=== PATIENT | female | born 1940 | race Caucasian/White ===

== ENCOUNTER 2021-09-12 15:37 | Inpatient (IN) | payer MEDICARE, SELFPAY ==
[2021-09-12 16:30] LABS: #Basophils 0.1 thou/uL (0.0-0.2); #Eosinphils 0.2 thou/uL (0.0-0.7); #Lymphocytes 2.4 thou/uL (1.20-3.40); #Monocytes 1.3 thou/uL (0.11-0.59); %Basophils 0.7 % (0.0-1.0); %Lymphocytes 21.7 % (21.0-51.0); %Monocytes 11.8 % (0.0-10.0); %Neutrophils 63.9 % (42.0-75.0); Hemoglobin 13.1 g/dL (12.0-16.0); Mean Corpuscular HGB CONC 33.7 g/dL (32.0-36.0); Mean Corpuscular Hemoglobin 31.7 pg (27.0-31.0); Mean Corpuscular Volume 94.1 fL (78.0-98.0); Platelet Count 322 thou/uL (130-400); RBC Distribution Width 13.2 % (11.5-14.5); Red Blood Cell (RBC) Count 4.14 mill/uL (4.20-5.40)
[2021-09-12 16:51] LABS: ALT (SGPT) 21 U/L (8-55); AST (SGOT) 17 U/L (5-34); Albumin 3.9 g/dL (3.4-4.8); Alkaline Phosphatase 76 U/L (40-110); Anion Gap 14 mmol/L (10-20); BUN (Urea Nitrogen) 25 mg/dL (9.8-20.1); Bilirubin, Total 0.5 mg/dL (0.2-1.2); Calc. Creatinine Clearance 0 mL/min (70-130); Calcium 8.9 mg/dL (7.8-10.44); Carbon Dioxide 25 mmol/L (23-31); Chloride 105 mmol/L (98-107); Globulin 2.4 g/dL (2.4-3.5); Glucose 128 mg/dL (83-110); Magnesium 1.5 mg/dL (1.6-2.6); Protein, Total 6.3 g/dL (5.8-8.1); Sodium 140 mmol/L (136-145)
[2021-09-12] MEDS ORDERED: Labetalol HCl 100 MG/20 ML VIAL ONE (18:17)
[2021-09-12] MEDS ORDERED: Bisacodyl 5 MG TAB PO PRN (20:29)
[2021-09-12] MEDS ORDERED: Ondansetron PF 4 MG/2 ML Vial IVP PRN (20:29)
[2021-09-12] MEDS ORDERED: Loperamide HCl 2 MG CAP PO PRN (20:29)
[2021-09-12] MEDS ORDERED: HYDROcodone/Acetaminophen 5/325 mg Tablet PO PRN (20:29)
[2021-09-12] MEDS ORDERED: Albuterol Sulfate 2.5 mg/3 ml Neb NEB PRN (20:37)
[2021-09-12] MEDS ORDERED: Morphine 2 MG/ML VIAL SLOW IVP PRN (20:39)
[2021-09-12 21:21] LABS: Digoxin 0.88 ng/mL (0.8-2.0)
[2021-09-12 21:54] VITALS: BMI 36.8
[2021-09-12] MEDS ORDERED: Carvedilol 25 MG TAB PO SCH (22:45)
[2021-09-12] MEDS ORDERED: Losartan 25 MG TAB PO SCH (22:45)
[2021-09-12] MEDS: Amiodarone 200 MG TAB PO SCH (23:29)
[2021-09-12] MEDS: Apixaban 5 MG TAB PO SCH (23:31)
[2021-09-12] MEDS: Atorvastatin Calcium 10 MG TAB PO SCH (23:31)
[2021-09-12] MEDS: Famotidine 20 MG TAB PO SCH (23:31)
[2021-09-13] MEDS ORDERED: diphenhydrAMINE 25 MG CAP PO SCH (01:15)
[2021-09-13] MEDS: Acetaminophen 325 MG TAB PO PRN (01:31)
[2021-09-13 05:25] LABS: #Basophils 0.1 thou/uL (0.0-0.2); #Eosinphils 0.3 thou/uL (0.0-0.7); #Lymphocytes 2.9 thou/uL (1.20-3.40); #Monocytes 1.2 thou/uL (0.11-0.59); #Neutrophils 5.8 thou/uL (1.40-6.50); %Basophils 0.7 % (0.0-1.0); %Lymphocytes 28.3 % (21.0-51.0); %Monocytes 11.6 % (0.0-10.0); %Neutrophils 56.5 % (42.0-75.0); Hemoglobin 12.5 g/dL (12.0-16.0); Mean Corpuscular HGB CONC 33.4 g/dL (32.0-36.0); Mean Corpuscular Hemoglobin 32.7 pg (27.0-31.0); Mean Corpuscular Volume 97.6 fL (78.0-98.0); Mean Platelet Volume 7.6 fL (7.4-10.4); Platelet Count 285 thou/uL (130-400); RBC Distribution Width 12.9 % (11.5-14.5); Red Blood Cell (RBC) Count 3.82 mill/uL (4.20-5.40); White Blood Cell (WBC) Count 10.3 thou/uL (4.8-10.8)
[2021-09-13 05:34] LABS: ALT (SGPT) 18 U/L (8-55); AST (SGOT) 15 U/L (5-34); Albumin 3.5 g/dL (3.4-4.8); Alkaline Phosphatase 69 U/L (40-110); Anion Gap 14 mmol/L (10-20); BUN (Urea Nitrogen) 20 mg/dL (9.8-20.1); Bilirubin, Total 0.4 mg/dL (0.2-1.2); Calc. Creatinine Clearance 69 mL/min (70-130); Calcium 8.4 mg/dL (7.8-10.44); Carbon Dioxide 25 mmol/L (23-31); Chloride 106 mmol/L (98-107); Globulin 2.3 g/dL (2.4-3.5); Glucose 117 mg/dL (83-110); Magnesium 1.5 mg/dL (1.6-2.6); Potassium 3.8 mmol/L (3.5-5.1); Protein, Total 5.8 g/dL (5.8-8.1); Sodium 141 mmol/L (136-145)
[2021-09-13 05:39] LABS: Troponin I 0.022 ng/mL (< 0.028)
[2021-09-13] MEDS: Amiodarone 200 MG TAB PO SCH ×2 (08:24→21:01)
[2021-09-13] MEDS: Carvedilol 25 MG TAB PO SCH ×2 (08:24→16:33)
[2021-09-13] MEDS: Famotidine 20 MG TAB PO SCH ×2 (08:24→21:01)
[2021-09-13] MEDS: Apixaban 5 MG TAB PO SCH ×2 (08:24→21:01)
[2021-09-13] MEDS: Digoxin 0.125 MG TAB PO SCH (08:24)
[2021-09-13] MEDS: Oxybutynin 5 MG TAB PO SCH (08:25)
[2021-09-13 08:48] LABS: Bacteria/HPF None Seen HPF (None Seen); Bilirubin Negative (Negative); Blood, Urine Negative (Negative); Clarity Clear (Clear); Glucose, Urine (Dipstick) Normal (Negative); Ketone, Urine Negative (Negative); Leukocyte Negative Leu/uL (Negative); Nitrite Negative (Negative); Protein, Urine (Dipstick) Negative (Neg-Trace); RBC/HPF 0-3 HPF (0-3); Specific Gravity, Urine 1.012 (1.002-1.036); Squamous Epithelial 0-3 HPF (0-3); Urobilinogen Normal mg/dL (Less than 2); WBC/HPF 0-3 HPF (0-3)
[2021-09-13] MEDS ORDERED: Losartan 25 MG TAB PO SCH ×2 (09:00→15:30)
[2021-09-13 10:34] LABS: Troponin I 0.018 ng/mL (< 0.028)
[2021-09-13] MEDS ORDERED: Hydrochlorothiazide 25 MG TAB PO SCH (15:30)
[2021-09-13 16:22] LABS: Troponin I 0.025 ng/mL (< 0.028)
[2021-09-13] MEDS: Zolpidem Tartrate 5 MG TAB PO PRN (21:01)
[2021-09-13] MEDS: Atorvastatin Calcium 10 MG TAB PO SCH (21:01)
[2021-09-14] MEDS: hydrALAZINE 20 MG/ML VIAL SLOW IVP PRN ×2 (04:16→19:17)
[2021-09-14] MEDS ORDERED: Iopamidol-370 76% 500 ML 1 ML ONE (08:20)
[2021-09-14] MEDS ORDERED: Hydrochlorothiazide 25 MG TAB PO SCH (09:00)
[2021-09-14] MEDS: Carvedilol 25 MG TAB PO SCH ×2 (09:03→17:29)
[2021-09-14] MEDS: Amiodarone 200 MG TAB PO SCH ×2 (09:03→20:32)
[2021-09-14] MEDS: Amlodipine 5 MG TAB PO SCH (09:03)
[2021-09-14] MEDS: Digoxin 0.125 MG TAB PO SCH (09:03)
[2021-09-14] MEDS: Apixaban 5 MG TAB PO SCH ×2 (09:03→20:32)
[2021-09-14] MEDS: Famotidine 20 MG TAB PO SCH ×2 (09:04→20:32)
[2021-09-14] MEDS: Oxybutynin 5 MG TAB PO SCH (09:04)
[2021-09-14] MEDS: Hydrochlorothiazide 25 MG TAB PO SCH (09:04)
[2021-09-14] MEDS: Losartan 25 MG TAB PO SCH (09:04)
[2021-09-14] MEDS: Acetaminophen 325 MG TAB PO PRN ×2 (09:07→13:16)
[2021-09-14] MEDS: Zolpidem Tartrate 5 MG TAB PO PRN (20:32)
[2021-09-14] MEDS: Atorvastatin Calcium 10 MG TAB PO SCH (20:32)
[2021-09-15] MEDS: Zolpidem Tartrate 5 MG TAB PO PRN ×2 (01:10→22:53)
[2021-09-15 05:17] LABS: #Eosinphils 0.4 thou/uL (0.0-0.7); #Lymphocytes 2.4 thou/uL (1.20-3.40); #Monocytes 1.1 thou/uL (0.11-0.59); #Neutrophils 4.6 thou/uL (1.40-6.50); %Basophils 0.4 % (0.0-1.0); %Eosinophils 4.4 % (0.0-10.0); %Lymphocytes 28.4 % (21.0-51.0); %Monocytes 12.3 % (0.0-10.0); %Neutrophils 54.5 % (42.0-75.0); Hemoglobin 13.1 g/dL (12.0-16.0); Mean Platelet Volume 7.6 fL (7.4-10.4); Platelet Count 286 thou/uL (130-400); White Blood Cell (WBC) Count 8.5 thou/uL (4.8-10.8)
[2021-09-15 05:43] LABS: Anion Gap 14 mmol/L (10-20); BUN (Urea Nitrogen) 19 mg/dL (9.8-20.1); Calc. Creatinine Clearance 81 mL/min (70-130); Calcium 8.9 mg/dL (7.8-10.44); Carbon Dioxide 26 mmol/L (23-31); Chloride 101 mmol/L (98-107); Glucose 116 mg/dL (83-110); Potassium 3.5 mmol/L (3.5-5.1); Sodium 137 mmol/L (136-145)
[2021-09-15] MEDS: Hydrochlorothiazide 25 MG TAB PO SCH (07:54)
[2021-09-15] MEDS: Digoxin 0.125 MG TAB PO SCH (07:54)
[2021-09-15] MEDS: Oxybutynin 5 MG TAB PO SCH (07:55)
[2021-09-15] MEDS: Amiodarone 200 MG TAB PO SCH ×2 (07:55→20:49)
[2021-09-15] MEDS: Famotidine 20 MG TAB PO SCH ×2 (07:55→20:50)
[2021-09-15] MEDS: Apixaban 5 MG TAB PO SCH ×2 (07:55→20:50)
[2021-09-15] MEDS: Amlodipine 5 MG TAB PO SCH (07:55)
[2021-09-15] MEDS: Losartan 25 MG TAB PO SCH (07:55)
[2021-09-15] MEDS: Carvedilol 25 MG TAB PO SCH ×2 (07:55→16:31)
[2021-09-15] MEDS ORDERED: Calcium Carbonate 500 MG ChewTAB PO PRN (09:28)
[2021-09-15] MEDS ORDERED: Loratadine 10 MG TAB PO PRN (09:28)
[2021-09-15] MEDS ORDERED: Artificial Tear Sol 15 ML BOT EA EYE PRN (09:28)
[2021-09-15] MEDS ORDERED: Moisturizing Cream (Eucerin) 113 GM JAR TOP PRN (09:28)
[2021-09-15] MEDS ORDERED: GUAIFENESIN SF SOLN 200 MG/10 ML UDCUP PO PRN (09:28)
[2021-09-15] MEDS: Acetaminophen 325 MG TAB PO PRN ×2 (16:31→22:53)
[2021-09-15] MEDS: Atorvastatin Calcium 10 MG TAB PO SCH (20:49)
[2021-09-16] MEDS: Oxybutynin 5 MG TAB PO SCH (08:25)
[2021-09-16] MEDS: Amiodarone 200 MG TAB PO SCH ×2 (08:25→20:53)
[2021-09-16] MEDS: Amlodipine 5 MG TAB PO SCH (08:25)
[2021-09-16] MEDS: Digoxin 0.125 MG TAB PO SCH (08:26)
[2021-09-16] MEDS: Apixaban 5 MG TAB PO SCH ×2 (08:26→20:53)
[2021-09-16] MEDS: Hydrochlorothiazide 25 MG TAB PO SCH (08:26)
[2021-09-16] MEDS: Famotidine 20 MG TAB PO SCH ×2 (08:26→20:54)
[2021-09-16] MEDS: Carvedilol 25 MG TAB PO SCH ×2 (08:26→16:49)
[2021-09-16] MEDS: Losartan 25 MG TAB PO SCH (08:26)
[2021-09-16] MEDS: Acetaminophen 325 MG TAB PO PRN (15:20)
[2021-09-16] MEDS ORDERED: Polyethylene Glycol OPTH DROP 15 ML BOT EA EYE PRN (20:11)
[2021-09-16] MEDS: Atorvastatin Calcium 10 MG TAB PO SCH (20:54)
[2021-09-16] MEDS: Zolpidem Tartrate 5 MG TAB PO PRN (22:14)
[2021-09-17] MEDS: hydrALAZINE 20 MG/ML VIAL SLOW IVP PRN (00:08)
[2021-09-17] MEDS: Acetaminophen 325 MG TAB PO PRN ×3 (01:46→12:22)
[2021-09-17 05:32] LABS: #Basophils 0.1 thou/uL (0.0-0.2); #Eosinphils 0.3 thou/uL (0.0-0.7); #Lymphocytes 2.6 thou/uL (1.20-3.40); #Monocytes 1.4 thou/uL (0.11-0.59); #Neutrophils 6.3 thou/uL (1.40-6.50); %Basophils 0.6 % (0.0-1.0); %Eosinophils 2.9 % (0.0-10.0); %Lymphocytes 24.1 % (21.0-51.0); %Monocytes 13.4 % (0.0-10.0); Hemoglobin 13.2 g/dL (12.0-16.0); Mean Corpuscular HGB CONC 32.8 g/dL (32.0-36.0); Mean Corpuscular Hemoglobin 31.8 pg (27.0-31.0); Mean Corpuscular Volume 96.7 fL (78.0-98.0); Mean Platelet Volume 7.5 fL (7.4-10.4); Platelet Count 277 thou/uL (130-400); RBC Distribution Width 12.9 % (11.5-14.5); Red Blood Cell (RBC) Count 4.15 mill/uL (4.20-5.40); White Blood Cell (WBC) Count 10.8 thou/uL (4.8-10.8)
[2021-09-17 06:03] LABS: Anion Gap 14 mmol/L (10-20); BUN (Urea Nitrogen) 19 mg/dL (9.8-20.1); Calc. Creatinine Clearance 78 mL/min (70-130); Calcium 9.3 mg/dL (7.8-10.44); Carbon Dioxide 27 mmol/L (23-31); Chloride 101 mmol/L (98-107); Glucose 122 mg/dL (83-110); Magnesium 1.6 mg/dL (1.6-2.6); Potassium 3.3 mmol/L (3.5-5.1); Sodium 139 mmol/L (136-145)
[2021-09-17] MEDS: Digoxin 0.125 MG TAB PO SCH (08:49)
[2021-09-17] MEDS: Losartan 25 MG TAB PO SCH (08:49)
[2021-09-17] MEDS: Apixaban 5 MG TAB PO SCH (08:50)
[2021-09-17] MEDS: Oxybutynin 5 MG TAB PO SCH (08:50)
[2021-09-17] MEDS: Amlodipine 5 MG TAB PO SCH (08:50)
[2021-09-17] MEDS: Carvedilol 25 MG TAB PO SCH (08:50)
[2021-09-17] MEDS: Famotidine 20 MG TAB PO SCH (08:50)
[2021-09-17] MEDS: Amiodarone 200 MG TAB PO SCH (08:50)
[2021-09-17] MEDS: Hydrochlorothiazide 25 MG TAB PO SCH (08:51)
[2021-09-17] MEDS ORDERED: Potassium Chloride 10 MEQ in Premix Bag 1 BAG IVPB SCH (09:00)
[2021-09-17 16:26] VITALS: BP 177/72; TEMP 97.3
== END 2021-09-17 17:28 | DRG 305 ==
LOC: ERS 15:37 → 2SW 19:20 → OBSVTOIN 09-15 10:09
PROVIDERS: ADMIT Emergency Medicine; ATTEND Emergency Medicine
DX: I16.0 Hypertensive urgency (principal); I48.20 Chronic atrial fibrillation, unspecified; Z20.822 Contact with and (suspected) exposure to COVID-19; I10 Essential (primary) hypertension; E78.5 Hyperlipidemia, unspecified; M17.0 Bilateral primary osteoarthritis of knee; E66.9 Obesity, unspecified; E83.42 Hypomagnesemia; I70.1 Atherosclerosis of renal artery; Z79.01 Long term (current) use of anticoagulants; Z68.36 Body mass index [BMI] 36.0-36.9, adult; Z90.710 Acquired absence of both cervix and uterus; Z79.899 Other long term (current) drug therapy; Z88.1 Allergy status to other antibiotic agents; Z88.8 Allergy status to other drugs, medicaments and biological substances
CPT/HCPCS: 36415; 71046; 74174; 80048; 80053; 80162; 81001; 83735; 83835; 83880; 84443; 84484; 85025; 85379; 93005; 96374; J0360; J3480; Q9967; U0003; U0005

== ENCOUNTER 2021-10-11 10:20 | Inpatient (IN) | payer MEDICARE ==
[2021-10-11] MEDS ORDERED: Aspirin Chewable 81 MG TAB ONE (10:39)
[2021-10-11] MEDS ORDERED: Nitroglycerin 2% Ointment 1 INCH/1 GM Packet ONE ×2 (10:39→11:03)
[2021-10-11] MEDS ORDERED: Acetaminophen 500 MG TAB ONE ×2 (10:40→11:03)
[2021-10-11 11:04] LABS: #Basophils 0.1 thou/uL (0.0-0.2); #Lymphocytes 1.5 thou/uL (1.20-3.40); #Monocytes 1.8 thou/uL (0.11-0.59); #Neutrophils 10.9 thou/uL (1.40-6.50); %Basophils 0.5 % (0.0-1.0); %Eosinophils 0.3 % (0.0-10.0); %Lymphocytes 10.5 % (21.0-51.0); %Monocytes 12.7 % (0.0-10.0); %Neutrophils 76.1 % (42.0-75.0); Hemoglobin 11.7 g/dL (12.0-16.0); Mean Corpuscular HGB CONC 32.6 g/dL (32.0-36.0); Mean Corpuscular Hemoglobin 31.7 pg (27.0-31.0); Mean Corpuscular Volume 97.3 fL (78.0-98.0); Mean Platelet Volume 8.1 fL (7.4-10.4); Platelet Count 229 thou/uL (130-400); RBC Distribution Width 13.8 % (11.5-14.5); White Blood Cell (WBC) Count 14.4 thou/uL (4.8-10.8)
[2021-10-11] MEDS ORDERED: Azithromycin 500 MG VIAL ONE (11:23)
[2021-10-11] MEDS ORDERED: cefTRIAXone\\ROCEPHIN 2 GM VIAL ONE (11:23)
[2021-10-11 11:25] LABS: ALT (SGPT) 34 U/L (8-55); AST (SGOT) 16 U/L (5-34); Albumin 3.6 g/dL (3.4-4.8); Alkaline Phosphatase 66 U/L (40-110); Anion Gap 14 mmol/L (10-20); BUN (Urea Nitrogen) 12 mg/dL (9.8-20.1); Bilirubin, Total 1.4 mg/dL (0.2-1.2); CK (CPK) 116 U/L (29-168); Calc. Creatinine Clearance 0 mL/min (70-130); Calcium 8.4 mg/dL (7.8-10.44); Carbon Dioxide 26 mmol/L (23-31); Estimated GFR 87; Globulin 2.4 g/dL (2.4-3.5); Glucose 142 mg/dL (83-110); Lipase 7 U/L (8-78); Potassium 3.3 mmol/L (3.5-5.1); Sodium 137 mmol/L (136-145)
[2021-10-11] MEDS ORDERED: Albuterol Sulfate 2.5 mg/0.5 ml Neb ONE (11:31)
[2021-10-11] MEDS ORDERED: Albuterol Sulfate 2.5 mg/3 ml Neb ONE (11:31)
[2021-10-11 11:36] LABS: Chloride 100 mmol/L (98-107)
[2021-10-11] MEDS ORDERED: Potassium Chloride 20 MEQ TAB ONE (11:43)
[2021-10-11] MEDS ORDERED: Ondansetron PF 4 MG/2 ML Vial IVP PRN (12:24)
[2021-10-11] MEDS ORDERED: Ondansetron ODT 4 MG TAB PO PRN (12:24)
[2021-10-11] MEDS ORDERED: hydrALAZINE 20 MG/ML VIAL SLOW IVP PRN (12:24)
[2021-10-11] MEDS ORDERED: Potassium Chloride 20 MEQ TAB PO SCH (12:30)
[2021-10-11] MEDS ORDERED: Albuterol 200 PUFF (6.7GM INHALER) INH PRN (13:00)
[2021-10-11 14:27] LABS: Troponin I 0.031 ng/mL (< 0.028)
[2021-10-11] MEDS ORDERED: Furosemide 40 MG/4 ML VIAL ONE (14:51)
[2021-10-11] MEDS: Furosemide 40 MG/4 ML VIAL SLOW IVP SCH (15:17)
[2021-10-11 17:48] LABS: Troponin I 0.033 ng/mL (< 0.028)
[2021-10-11 17:49] LABS: SARS-CoV-2 NAA Rapid Test Not Detected (NotDetected)
[2021-10-11] MEDS: Famotidine 20 MG TAB PO SCH (21:02)
[2021-10-11] MEDS: Potassium Chloride 20 MEQ TAB PO SCH (21:02)
[2021-10-11] MEDS: Acetaminophen 500 MG TAB PO PRN (21:03)
[2021-10-11] MEDS: Apixaban 5 MG TAB PO SCH (21:03)
[2021-10-11] MEDS: Atorvastatin Calcium 10 MG TAB PO SCH (21:03)
[2021-10-11] MEDS: Magnesium Oxide 400 MG TAB PO SCH (21:04)
[2021-10-11] MEDS: Amiodarone 200 MG TAB PO SCH (21:04)
[2021-10-11 22:07] LABS: Bacteria/HPF 1+ HPF (None Seen); Bilirubin Negative (Negative); Blood, Urine Negative (Negative); Clarity Clear (Clear); Glucose, Urine (Dipstick) Normal (Negative); Ketone, Urine Negative (Negative); Leukocyte 25 Leu/uL (Negative); Nitrite Negative (Negative); Protein, Urine (Dipstick) 20 mg/dL (Neg-Trace); RBC/HPF 0-3 HPF (0-3); Specific Gravity, Urine 1.016 (1.002-1.036); Squamous Epithelial 0-3 HPF (0-3); Urobilinogen Normal mg/dL (Less than 2); WBC/HPF 0-3 HPF (0-3)
[2021-10-11] MEDS ORDERED: traMADol HCl 50 MG TAB PO SCH (23:00)
[2021-10-12 04:29] LABS: #Basophils 0.1 thou/uL (0.0-0.2); #Eosinphils 0.2 thou/uL (0.0-0.7); #Lymphocytes 2.4 thou/uL (1.20-3.40); #Monocytes 1.6 thou/uL (0.11-0.59); #Neutrophils 9.4 thou/uL (1.40-6.50); %Basophils 0.5 % (0.0-1.0); %Eosinophils 1.4 % (0.0-10.0); %Lymphocytes 17.6 % (21.0-51.0); %Monocytes 11.6 % (0.0-10.0); %Neutrophils 68.8 % (42.0-75.0); Hemoglobin 11.8 g/dL (12.0-16.0); Mean Corpuscular HGB CONC 32.7 g/dL (32.0-36.0); Mean Corpuscular Volume 97.8 fL (78.0-98.0); Platelet Count 239 thou/uL (130-400); RBC Distribution Width 14.1 % (11.5-14.5); Red Blood Cell (RBC) Count 3.71 mill/uL (4.20-5.40); White Blood Cell (WBC) Count 13.6 thou/uL (4.8-10.8)
[2021-10-12 04:48] LABS: ALT (SGPT) 33 U/L (8-55); AST (SGOT) 22 U/L (5-34); Albumin 3.6 g/dL (3.4-4.8); Alkaline Phosphatase 71 U/L (40-110); Anion Gap 15 mmol/L (10-20); BUN (Urea Nitrogen) 13 mg/dL (9.8-20.1); Bilirubin, Total 0.9 mg/dL (0.2-1.2); Calc. Creatinine Clearance 102 mL/min (70-130); Calcium 8.6 mg/dL (7.8-10.44); Carbon Dioxide 26 mmol/L (23-31); Chloride 103 mmol/L (98-107); Estimated GFR 83; Glucose 117 mg/dL (83-110); Magnesium 1.6 mg/dL (1.6-2.6); Protein, Total 6.6 g/dL (5.8-8.1); Sodium 140 mmol/L (136-145)
[2021-10-12] MEDS: ALPRAZolam 0.25 MG TAB PO PRN ×2 (05:17→11:26)
[2021-10-12] MEDS ORDERED: cloNIDine 0.2 MG TAB PO SCH (05:30)
[2021-10-12] MEDS: Amiodarone 200 MG TAB PO SCH ×2 (06:34→16:43)
[2021-10-12] MEDS ORDERED: Furosemide 40 MG TAB PO SCH (07:00)
[2021-10-12] MEDS: Furosemide 40 MG/4 ML VIAL SLOW IVP SCH (08:45)
[2021-10-12] MEDS: Furosemide 40 MG TAB PO SCH ×2 (08:51→13:32)
[2021-10-12] MEDS: Digoxin 0.125 MG TAB PO SCH (10:04)
[2021-10-12] MEDS: Oxybutynin 5 MG TAB PO SCH (10:05)
[2021-10-12] MEDS: Famotidine 20 MG TAB PO SCH ×2 (10:05→21:23)
[2021-10-12] MEDS: Potassium Chloride 20 MEQ TAB PO SCH ×2 (10:05→16:43)
[2021-10-12] MEDS: Magnesium Oxide 400 MG TAB PO SCH ×2 (10:06→21:24)
[2021-10-12] MEDS: Amlodipine 5 MG TAB PO SCH (10:06)
[2021-10-12] MEDS: Apixaban 5 MG TAB PO SCH ×2 (10:06→21:23)
[2021-10-12] MEDS ORDERED: Azithromycin 500 MG in Sodium Chloride 0.9% 250 ML 250 ML IVPB SCH (11:30)
[2021-10-12] MEDS ORDERED: cefTRIAXone\\ROCEPHIN 2 GM in Sodium Chloride 0.9% 100 ML IVPB SCH (11:30)
[2021-10-12] MEDS: cefTRIAXone\\ROCEPHIN 2 GM in Sodium Chloride 0.9% 100 ML IVPB SCH (15:16)
[2021-10-12] MEDS: Azithromycin 500 MG in Sodium Chloride 0.9% 250 ML 250 ML IVPB SCH (16:44)
[2021-10-12] MEDS: Atorvastatin Calcium 10 MG TAB PO SCH (21:23)
[2021-10-12] MEDS: Acetaminophen 500 MG TAB PO PRN (21:24)
[2021-10-12] MEDS: Melatonin 3 MG TAB PO PRN (21:25)
[2021-10-13 04:45] LABS: Hemoglobin 10.8 g/dL (12.0-16.0); Mean Corpuscular Hemoglobin 32.4 pg (27.0-31.0); Mean Corpuscular Volume 98.2 fL (78.0-98.0); Mean Platelet Volume 7.9 fL (7.4-10.4); Platelet Count 224 thou/uL (130-400); Red Blood Cell (RBC) Count 3.33 mill/uL (4.20-5.40); White Blood Cell (WBC) Count 8.9 thou/uL (4.8-10.8)
[2021-10-13 04:59] LABS: Anion Gap 14 mmol/L (10-20); BUN (Urea Nitrogen) 16 mg/dL (9.8-20.1); Calc. Creatinine Clearance 92 mL/min (70-130); Calcium 7.7 mg/dL (7.8-10.44); Carbon Dioxide 25 mmol/L (23-31); Chloride 104 mmol/L (98-107); Estimated GFR 74; Glucose 105 mg/dL (83-110); Sodium 139 mmol/L (136-145)
[2021-10-13 05:10] LABS: Band 3 % (5-11); Eosinophils 1 % (0-10); Lymphocytes 21 % (21-51); MDiff Complete? YES; Monocytes 10 % (0-10); Myelocyte 1 % (0-0); Neutrophil 63 % (42-75)
[2021-10-13] MEDS: Digoxin 0.125 MG TAB PO SCH (09:38)
[2021-10-13] MEDS: Oxybutynin 5 MG TAB PO SCH (09:38)
[2021-10-13] MEDS: Famotidine 20 MG TAB PO SCH ×2 (09:40→20:55)
[2021-10-13] MEDS: Furosemide 40 MG TAB PO SCH ×2 (09:40→16:24)
[2021-10-13] MEDS: Apixaban 5 MG TAB PO SCH ×2 (09:40→20:56)
[2021-10-13] MEDS: Magnesium Oxide 400 MG TAB PO SCH ×2 (09:41→20:55)
[2021-10-13] MEDS: Potassium Chloride 20 MEQ TAB PO SCH ×2 (09:41→16:24)
[2021-10-13] MEDS: Amlodipine 5 MG TAB PO SCH (09:42)
[2021-10-13] MEDS: Amiodarone 200 MG TAB PO SCH ×2 (09:43→16:24)
[2021-10-13] MEDS ORDERED: Losartan 25 MG TAB PO SCH (10:00)
[2021-10-13] MEDS ORDERED: Carvedilol 6.25 MG TAB PO SCH (10:00)
[2021-10-13] MEDS ORDERED: Albuterol Sulfate 2.5 mg/3 ml Neb NEB PRN (10:04)
[2021-10-13] MEDS: cefTRIAXone\\ROCEPHIN 2 GM in Sodium Chloride 0.9% 100 ML IVPB SCH (16:25)
[2021-10-13] MEDS: Azithromycin 500 MG in Sodium Chloride 0.9% 250 ML 250 ML IVPB SCH (17:34)
[2021-10-13] MEDS: Carvedilol 6.25 MG TAB PO SCH (20:56)
[2021-10-13] MEDS: Senokot S 8.6-50 MG TAB PO SCH (20:56)
[2021-10-13] MEDS: Atorvastatin Calcium 10 MG TAB PO SCH (20:56)
[2021-10-13] MEDS ORDERED: Carvedilol 25 MG TAB PO SCH (21:00)
[2021-10-13] MEDS: ALPRAZolam 0.25 MG TAB PO PRN (23:57)
[2021-10-14 05:03] LABS: #Basophils 0.1 thou/uL (0.0-0.2); #Eosinphils 0.4 thou/uL (0.0-0.7); #Lymphocytes 1.8 thou/uL (1.20-3.40); #Monocytes 1.5 thou/uL (0.11-0.59); #Neutrophils 6.6 thou/uL (1.40-6.50); %Basophils 0.6 % (0.0-1.0); %Eosinophils 3.9 % (0.0-10.0); %Lymphocytes 17.5 % (21.0-51.0); %Monocytes 14.2 % (0.0-10.0); %Neutrophils 63.7 % (42.0-75.0); Hemoglobin 11.4 g/dL (12.0-16.0); Mean Corpuscular HGB CONC 32.7 g/dL (32.0-36.0); Mean Corpuscular Hemoglobin 32.1 pg (27.0-31.0); Mean Corpuscular Volume 98.3 fL (78.0-98.0); Mean Platelet Volume 7.7 fL (7.4-10.4); Platelet Count 263 thou/uL (130-400); RBC Distribution Width 13.8 % (11.5-14.5); Red Blood Cell (RBC) Count 3.55 mill/uL (4.20-5.40); White Blood Cell (WBC) Count 10.4 thou/uL (4.8-10.8)
[2021-10-14 05:06] LABS: Anion Gap 15 mmol/L (10-20); BUN (Urea Nitrogen) 13 mg/dL (9.8-20.1); Calc. Creatinine Clearance 96 mL/min (70-130); Calcium 8.3 mg/dL (7.8-10.44); Carbon Dioxide 27 mmol/L (23-31); Chloride 99 mmol/L (98-107); Estimated GFR 78; Glucose 120 mg/dL (83-110); Potassium 4.1 mmol/L (3.5-5.1); Sodium 137 mmol/L (136-145)
[2021-10-14] MEDS: Oxybutynin 5 MG TAB PO SCH (08:38)
[2021-10-14] MEDS: Carvedilol 6.25 MG TAB PO SCH (08:38)
[2021-10-14] MEDS: Losartan 25 MG TAB PO SCH (08:39)
[2021-10-14] MEDS: Magnesium Oxide 400 MG TAB PO SCH ×2 (08:39→20:37)
[2021-10-14] MEDS: Senokot S 8.6-50 MG TAB PO SCH ×2 (08:39→20:37)
[2021-10-14] MEDS: Apixaban 5 MG TAB PO SCH ×2 (08:39→20:38)
[2021-10-14] MEDS: Amiodarone 200 MG TAB PO SCH ×2 (08:40→16:48)
[2021-10-14] MEDS: Famotidine 20 MG TAB PO SCH ×2 (08:40→20:37)
[2021-10-14] MEDS: Potassium Chloride 20 MEQ TAB PO SCH ×2 (08:40→16:47)
[2021-10-14] MEDS: Amlodipine 5 MG TAB PO SCH (08:40)
[2021-10-14] MEDS: Furosemide 40 MG TAB PO SCH ×2 (08:40→15:23)
[2021-10-14] MEDS: Digoxin 0.125 MG TAB PO SCH (08:41)
[2021-10-14] MEDS ORDERED: Amlodipine 5 MG TAB PO SCH (09:05)
[2021-10-14 10:46] LABS: Troponin I 0.012 ng/mL (< 0.028)
[2021-10-14] MEDS ORDERED: Losartan 25 MG TAB PO ONE (12:25)
[2021-10-14] MEDS: cefTRIAXone\\ROCEPHIN 2 GM in Sodium Chloride 0.9% 100 ML IVPB SCH (15:27)
[2021-10-14] MEDS: Azithromycin 500 MG in Sodium Chloride 0.9% 250 ML 250 ML IVPB SCH (16:46)
[2021-10-14] MEDS: Carvedilol 25 MG TAB PO SCH (20:37)
[2021-10-14] MEDS: Melatonin 3 MG TAB PO PRN (20:37)
[2021-10-14] MEDS: Atorvastatin Calcium 10 MG TAB PO SCH (20:38)
[2021-10-15 04:37] LABS: #Basophils 0.1 thou/uL (0.0-0.2); #Eosinphils 0.4 thou/uL (0.0-0.7); #Lymphocytes 2.3 thou/uL (1.20-3.40); #Monocytes 1.2 thou/uL (0.11-0.59); #Neutrophils 5.2 thou/uL (1.40-6.50); %Basophils 0.8 % (0.0-1.0); %Eosinophils 4.1 % (0.0-10.0); %Monocytes 12.8 % (0.0-10.0); %Neutrophils 57.3 % (42.0-75.0); Hemoglobin 12.4 g/dL (12.0-16.0); Mean Corpuscular Hemoglobin 31.7 pg (27.0-31.0); Mean Corpuscular Volume 99.1 fL (78.0-98.0); Mean Platelet Volume 7.6 fL (7.4-10.4); Platelet Count 337 thou/uL (130-400); RBC Distribution Width 13.9 % (11.5-14.5); Red Blood Cell (RBC) Count 3.93 mill/uL (4.20-5.40); White Blood Cell (WBC) Count 9.1 thou/uL (4.8-10.8)
[2021-10-15 04:54] LABS: Anion Gap 17 mmol/L (10-20); BUN (Urea Nitrogen) 13 mg/dL (9.8-20.1); Calc. Creatinine Clearance 82 mL/min (70-130); Calcium 8.8 mg/dL (7.8-10.44); Carbon Dioxide 26 mmol/L (23-31); Chloride 100 mmol/L (98-107); Estimated GFR 69; Glucose 119 mg/dL (83-110); Potassium 4.4 mmol/L (3.5-5.1); Sodium 139 mmol/L (136-145)
[2021-10-15] MEDS: Amlodipine 10 MG TAB PO SCH (10:12)
[2021-10-15] MEDS: Famotidine 20 MG TAB PO SCH ×2 (10:13→20:40)
[2021-10-15] MEDS: Digoxin 0.125 MG TAB PO SCH (10:13)
[2021-10-15] MEDS: Potassium Chloride 20 MEQ TAB PO SCH ×2 (10:14→17:07)
[2021-10-15] MEDS: Senokot S 8.6-50 MG TAB PO SCH ×2 (10:15→20:40)
[2021-10-15] MEDS: Oxybutynin 5 MG TAB PO SCH (10:15)
[2021-10-15] MEDS: Furosemide 40 MG TAB PO SCH ×2 (10:15→15:26)
[2021-10-15] MEDS: Magnesium Oxide 400 MG TAB PO SCH ×2 (10:15→20:40)
[2021-10-15] MEDS: Carvedilol 25 MG TAB PO SCH ×2 (10:15→20:39)
[2021-10-15] MEDS: Amiodarone 200 MG TAB PO SCH ×2 (10:16→17:07)
[2021-10-15] MEDS: Losartan 25 MG TAB PO SCH (10:17)
[2021-10-15] MEDS: Apixaban 5 MG TAB PO SCH ×2 (10:17→20:39)
[2021-10-15] MEDS: ALPRAZolam 0.25 MG TAB PO PRN ×2 (10:20→20:40)
[2021-10-15] MEDS: cefTRIAXone\\ROCEPHIN 2 GM in Sodium Chloride 0.9% 100 ML IVPB SCH (15:33)
[2021-10-15] MEDS: Azithromycin 500 MG in Sodium Chloride 0.9% 250 ML 250 ML IVPB SCH (17:07)
[2021-10-15] MEDS: Atorvastatin Calcium 10 MG TAB PO SCH (20:39)
[2021-10-15] MEDS: Melatonin 3 MG TAB PO PRN (20:40)
[2021-10-16] MEDS: Potassium Chloride 20 MEQ TAB PO SCH ×2 (09:04→16:41)
[2021-10-16] MEDS: Furosemide 40 MG TAB PO SCH ×2 (09:04→14:39)
[2021-10-16] MEDS: Digoxin 0.125 MG TAB PO SCH (09:04)
[2021-10-16] MEDS: Carvedilol 25 MG TAB PO SCH ×2 (09:05→20:37)
[2021-10-16] MEDS: Amiodarone 200 MG TAB PO SCH ×2 (09:05→16:41)
[2021-10-16] MEDS: Famotidine 20 MG TAB PO SCH ×2 (09:05→20:37)
[2021-10-16] MEDS: Losartan 25 MG TAB PO SCH (09:05)
[2021-10-16] MEDS: Apixaban 5 MG TAB PO SCH ×2 (09:06→20:37)
[2021-10-16] MEDS: Amlodipine 10 MG TAB PO SCH (09:06)
[2021-10-16] MEDS: Senokot S 8.6-50 MG TAB PO SCH ×2 (09:06→20:46)
[2021-10-16] MEDS: Oxybutynin 5 MG TAB PO SCH (09:06)
[2021-10-16] MEDS: Magnesium Oxide 400 MG TAB PO SCH ×2 (09:06→20:37)
[2021-10-16] MEDS: Acetaminophen 500 MG TAB PO PRN ×2 (11:17→20:35)
[2021-10-16] MEDS: cefTRIAXone\\ROCEPHIN 2 GM in Sodium Chloride 0.9% 100 ML IVPB SCH (14:39)
[2021-10-16] MEDS: Azithromycin 500 MG in Sodium Chloride 0.9% 250 ML 250 ML IVPB SCH (15:35)
[2021-10-16] MEDS: Benzonatate 100 MG CAP PO PRN (20:35)
[2021-10-16] MEDS: ALPRAZolam 0.25 MG TAB PO PRN (20:35)
[2021-10-16] MEDS: Melatonin 3 MG TAB PO PRN (20:37)
[2021-10-16] MEDS: Atorvastatin Calcium 10 MG TAB PO SCH (20:37)
[2021-10-17] MEDS: Acetaminophen 500 MG TAB PO PRN ×4 (04:05→23:39)
[2021-10-17] MEDS: Benzonatate 100 MG CAP PO PRN ×4 (04:05→23:39)
[2021-10-17] MEDS: Potassium Chloride 20 MEQ TAB PO SCH ×2 (09:06→17:10)
[2021-10-17] MEDS: Amiodarone 200 MG TAB PO SCH ×2 (09:06→17:10)
[2021-10-17] MEDS: Magnesium Oxide 400 MG TAB PO SCH ×2 (09:06→21:21)
[2021-10-17] MEDS: Famotidine 20 MG TAB PO SCH ×2 (09:06→21:21)
[2021-10-17] MEDS: Losartan 25 MG TAB PO SCH (09:07)
[2021-10-17] MEDS: Carvedilol 25 MG TAB PO SCH ×2 (09:07→21:21)
[2021-10-17] MEDS: Amlodipine 10 MG TAB PO SCH (09:07)
[2021-10-17] MEDS: Oxybutynin 5 MG TAB PO SCH (09:08)
[2021-10-17] MEDS: Furosemide 40 MG TAB PO SCH ×2 (09:08→13:22)
[2021-10-17] MEDS: Digoxin 0.125 MG TAB PO SCH (09:08)
[2021-10-17] MEDS: Senokot S 8.6-50 MG TAB PO SCH ×2 (09:08→21:22)
[2021-10-17] MEDS: Apixaban 5 MG TAB PO SCH ×2 (09:08→21:21)
[2021-10-17] MEDS: cefTRIAXone\\ROCEPHIN 2 GM in Sodium Chloride 0.9% 100 ML IVPB SCH (15:03)
[2021-10-17] MEDS: Azithromycin 500 MG in Sodium Chloride 0.9% 250 ML 250 ML IVPB SCH (17:36)
[2021-10-17] MEDS: Atorvastatin Calcium 10 MG TAB PO SCH (21:21)
[2021-10-18] MEDS: Benzonatate 100 MG CAP PO PRN ×2 (05:14→16:30)
[2021-10-18] MEDS: Acetaminophen 500 MG TAB PO PRN ×3 (05:14→22:19)
[2021-10-18] MEDS: Digoxin 0.125 MG TAB PO SCH (08:16)
[2021-10-18] MEDS: Oxybutynin 5 MG TAB PO SCH (08:17)
[2021-10-18] MEDS: Amlodipine 10 MG TAB PO SCH (08:17)
[2021-10-18] MEDS: Apixaban 5 MG TAB PO SCH ×2 (08:18→22:21)
[2021-10-18] MEDS: Losartan 25 MG TAB PO SCH (08:18)
[2021-10-18] MEDS: Famotidine 20 MG TAB PO SCH ×2 (08:18→22:24)
[2021-10-18] MEDS: Furosemide 40 MG TAB PO SCH ×2 (08:18→14:51)
[2021-10-18] MEDS: Potassium Chloride 20 MEQ TAB PO SCH ×2 (08:19→16:30)
[2021-10-18] MEDS: Carvedilol 25 MG TAB PO SCH ×2 (08:19→22:23)
[2021-10-18] MEDS: Amiodarone 200 MG TAB PO SCH ×2 (08:19→16:30)
[2021-10-18] MEDS: Magnesium Oxide 400 MG TAB PO SCH ×2 (08:19→22:23)
[2021-10-18] MEDS: Senokot S 8.6-50 MG TAB PO SCH ×3 (08:19→22:24)
[2021-10-18] MEDS: cefTRIAXone\\ROCEPHIN 2 GM in Sodium Chloride 0.9% 100 ML IVPB SCH (14:51)
[2021-10-18] MEDS ORDERED: Albuterol 200 PUFF (6.7GM INHALER) INH PRN (17:23)
[2021-10-18] MEDS: Azithromycin 500 MG in Sodium Chloride 0.9% 250 ML 250 ML IVPB SCH (17:43)
[2021-10-18] MEDS: Albuterol 200 PUFF (6.7GM INHALER) INH SCH (18:14)
[2021-10-18] MEDS: Atorvastatin Calcium 10 MG TAB PO SCH (22:21)
[2021-10-19] MEDS: ALPRAZolam 0.25 MG TAB PO PRN ×3 (00:44→22:04)
[2021-10-19] MEDS: Albuterol 200 PUFF (6.7GM INHALER) INH SCH ×5 (01:11→23:48)
[2021-10-19] MEDS: Digoxin 0.125 MG TAB PO SCH (08:51)
[2021-10-19] MEDS: Potassium Chloride 20 MEQ TAB PO SCH ×2 (08:52→17:25)
[2021-10-19] MEDS: Apixaban 5 MG TAB PO SCH ×2 (08:52→20:48)
[2021-10-19] MEDS: Magnesium Oxide 400 MG TAB PO SCH ×2 (08:52→20:47)
[2021-10-19] MEDS: Famotidine 20 MG TAB PO SCH ×2 (08:52→20:45)
[2021-10-19] MEDS: Carvedilol 25 MG TAB PO SCH ×2 (08:52→20:48)
[2021-10-19] MEDS: Furosemide 40 MG TAB PO SCH ×2 (08:52→14:35)
[2021-10-19] MEDS: Amlodipine 10 MG TAB PO SCH (08:52)
[2021-10-19] MEDS: Amiodarone 200 MG TAB PO SCH ×2 (08:53→17:25)
[2021-10-19] MEDS: Oxybutynin 5 MG TAB PO SCH (08:53)
[2021-10-19] MEDS: Losartan 25 MG TAB PO SCH (08:53)
[2021-10-19] MEDS ORDERED: Dexamethasone 6 MG in Sodium Chloride 0.9% 50 ML IVPB SCH (13:15)
[2021-10-19] MEDS: Acetaminophen 500 MG TAB PO PRN ×2 (14:52→20:48)
[2021-10-19] MEDS: Benzonatate 100 MG CAP PO PRN (14:52)
[2021-10-19] MEDS: cefTRIAXone\\ROCEPHIN 2 GM in Sodium Chloride 0.9% 100 ML IVPB SCH (16:03)
[2021-10-19] MEDS: Azithromycin 500 MG in Sodium Chloride 0.9% 250 ML 250 ML IVPB SCH (17:24)
[2021-10-19] MEDS: Senokot S 8.6-50 MG TAB PO SCH (20:47)
[2021-10-19] MEDS: Atorvastatin Calcium 10 MG TAB PO SCH (20:48)
[2021-10-19] MEDS: Melatonin 3 MG TAB PO PRN (20:49)
[2021-10-20] MEDS: Albuterol 200 PUFF (6.7GM INHALER) INH SCH ×3 (05:14→19:05)
[2021-10-20] MEDS ORDERED: Dexamethasone 6 MG in Sodium Chloride 0.9% 50 ML IVPB SCH (09:00)
[2021-10-20] MEDS: Digoxin 0.125 MG TAB PO SCH (09:04)
[2021-10-20] MEDS: Potassium Chloride 20 MEQ TAB PO SCH ×2 (09:04→16:37)
[2021-10-20] MEDS: Apixaban 5 MG TAB PO SCH ×2 (09:05→21:03)
[2021-10-20] MEDS: Famotidine 20 MG TAB PO SCH ×2 (09:05→21:03)
[2021-10-20] MEDS: Losartan 25 MG TAB PO SCH (09:05)
[2021-10-20] MEDS: Amiodarone 200 MG TAB PO SCH ×2 (09:06→16:37)
[2021-10-20] MEDS: Senokot S 8.6-50 MG TAB PO SCH ×2 (09:06→21:03)
[2021-10-20] MEDS: Oxybutynin 5 MG TAB PO SCH (09:06)
[2021-10-20] MEDS: Furosemide 40 MG TAB PO SCH ×2 (09:06→14:40)
[2021-10-20] MEDS: Magnesium Oxide 400 MG TAB PO SCH ×2 (09:06→21:03)
[2021-10-20] MEDS: Amlodipine 10 MG TAB PO SCH (09:06)
[2021-10-20] MEDS: Carvedilol 25 MG TAB PO SCH ×2 (09:06→21:04)
[2021-10-20] MEDS: Dexamethasone 4 mg/ml Vial SLOW IVP SCH (09:13)
[2021-10-20] MEDS: cefTRIAXone\\ROCEPHIN 2 GM in Sodium Chloride 0.9% 100 ML IVPB SCH (14:41)
[2021-10-20] MEDS: Azithromycin 500 MG in Sodium Chloride 0.9% 250 ML 250 ML IVPB SCH (16:34)
[2021-10-20] MEDS: Acetaminophen 500 MG TAB PO PRN ×2 (16:38→21:57)
[2021-10-20] MEDS: Cholecalciferol 1,000 UNITS (25 MCG) TAB PO SCH (21:03)
[2021-10-20] MEDS: Zinc Sulfate 220 MG CAP PO SCH (21:03)
[2021-10-20] MEDS: Atorvastatin Calcium 10 MG TAB PO SCH (21:04)
[2021-10-20] MEDS: Benzonatate 100 MG CAP PO PRN (21:04)
[2021-10-20] MEDS: Melatonin 3 MG TAB PO PRN (21:04)
[2021-10-20] MEDS: ALPRAZolam 0.25 MG TAB PO PRN (21:57)
[2021-10-21] MEDS: Albuterol 200 PUFF (6.7GM INHALER) INH SCH ×5 (00:26→22:00)
[2021-10-21] MEDS: Acetaminophen 500 MG TAB PO PRN (04:38)
[2021-10-21] MEDS: ALPRAZolam 0.25 MG TAB PO PRN (04:39)
[2021-10-21 06:35] LABS: #Lymphocytes 1.7 thou/uL (1.20-3.40); #Monocytes 0.9 thou/uL (0.11-0.59); #Neutrophils 9.2 thou/uL (1.40-6.50); %Eosinophils 0.1 % (0.0-10.0); %Lymphocytes 14.1 % (21.0-51.0); %Monocytes 7.3 % (0.0-10.0); %Neutrophils 78.5 % (42.0-75.0); Mean Corpuscular HGB CONC 31.6 g/dL (32.0-36.0); Mean Corpuscular Hemoglobin 31.3 pg (27.0-31.0); Mean Corpuscular Volume 99.1 fL (78.0-98.0); Mean Platelet Volume 7.4 fL (7.4-10.4); Platelet Count 322 thou/uL (130-400); RBC Distribution Width 13.5 % (11.5-14.5); Red Blood Cell (RBC) Count 3.82 mill/uL (4.20-5.40); White Blood Cell (WBC) Count 11.8 thou/uL (4.8-10.8)
[2021-10-21 06:56] LABS: Anion Gap 16 mmol/L (10-20); BUN (Urea Nitrogen) 24 mg/dL (9.8-20.1); Calc. Creatinine Clearance 70 mL/min (70-130); Calcium 8.6 mg/dL (7.8-10.44); Carbon Dioxide 28 mmol/L (23-31); Chloride 99 mmol/L (98-107); Estimated GFR 63; Glucose 141 mg/dL (83-110); Magnesium 2.3 mg/dL (1.6-2.6); Phosphorus 3.4 mg/dL (2.3-4.7); Potassium 4.7 mmol/L (3.5-5.1); Sodium 138 mmol/L (136-145)
[2021-10-21] MEDS: Famotidine 20 MG TAB PO SCH ×2 (08:30→21:58)
[2021-10-21] MEDS: Carvedilol 25 MG TAB PO SCH ×2 (08:31→21:58)
[2021-10-21] MEDS: Multivit, Therapeutic 1 TAB PO SCH (08:31)
[2021-10-21] MEDS: Losartan 25 MG TAB PO SCH (08:31)
[2021-10-21] MEDS: Digoxin 0.125 MG TAB PO SCH (08:31)
[2021-10-21] MEDS: Magnesium Oxide 400 MG TAB PO SCH ×2 (08:32→21:59)
[2021-10-21] MEDS: Furosemide 40 MG TAB PO SCH (08:32)
[2021-10-21] MEDS: Ascorbic Acid 500 mg Chewable Tablet PO SCH (08:32)
[2021-10-21] MEDS: Apixaban 5 MG TAB PO SCH ×2 (08:32→21:58)
[2021-10-21] MEDS: Amlodipine 10 MG TAB PO SCH (08:32)
[2021-10-21] MEDS: Senokot S 8.6-50 MG TAB PO SCH ×2 (08:32→21:59)
[2021-10-21] MEDS: Oxybutynin 5 MG TAB PO SCH (08:32)
[2021-10-21] MEDS: Amiodarone 200 MG TAB PO SCH ×2 (08:32→16:09)
[2021-10-21] MEDS: Dexamethasone 4 mg/ml Vial SLOW IVP SCH (08:40)
[2021-10-21] MEDS: Azithromycin 500 MG in Sodium Chloride 0.9% 250 ML 250 ML IVPB SCH (16:12)
[2021-10-21] MEDS: cefTRIAXone\\ROCEPHIN 2 GM in Sodium Chloride 0.9% 100 ML IVPB SCH (16:12)
[2021-10-21] MEDS: Atorvastatin Calcium 10 MG TAB PO SCH (21:58)
[2021-10-21] MEDS: Cholecalciferol 1,000 UNITS (25 MCG) TAB PO SCH (21:58)
[2021-10-21] MEDS: Zinc Sulfate 220 MG CAP PO SCH (21:59)
[2021-10-22] MEDS: Acetaminophen 500 MG TAB PO PRN (00:31)
[2021-10-22] MEDS: Melatonin 3 MG TAB PO PRN ×2 (00:32→20:36)
[2021-10-22] MEDS: Albuterol 200 PUFF (6.7GM INHALER) INH SCH ×2 (05:47→19:07)
[2021-10-22] MEDS: Ascorbic Acid 500 mg Chewable Tablet PO SCH (08:48)
[2021-10-22] MEDS: Magnesium Oxide 400 MG TAB PO SCH ×2 (08:48→20:36)
[2021-10-22] MEDS: Digoxin 0.125 MG TAB PO SCH (08:48)
[2021-10-22] MEDS: Famotidine 20 MG TAB PO SCH ×2 (08:48→20:37)
[2021-10-22] MEDS: Multivit, Therapeutic 1 TAB PO SCH (08:48)
[2021-10-22] MEDS: Amlodipine 10 MG TAB PO SCH (08:48)
[2021-10-22] MEDS: Losartan 25 MG TAB PO SCH (08:48)
[2021-10-22] MEDS: Furosemide 40 MG TAB PO SCH (08:49)
[2021-10-22] MEDS: Carvedilol 25 MG TAB PO SCH ×2 (08:49→20:38)
[2021-10-22] MEDS: Amiodarone 200 MG TAB PO SCH ×2 (08:49→18:24)
[2021-10-22] MEDS: Apixaban 5 MG TAB PO SCH ×2 (08:49→20:36)
[2021-10-22] MEDS: Oxybutynin 5 MG TAB PO SCH (08:50)
[2021-10-22] MEDS: Senokot S 8.6-50 MG TAB PO SCH ×2 (08:50→20:38)
[2021-10-22 09:06] VITALS: BMI 36.8
[2021-10-22] MEDS: Cholecalciferol 1,000 UNITS (25 MCG) TAB PO SCH (20:36)
[2021-10-22] MEDS: Zinc Sulfate 220 MG CAP PO SCH (20:37)
[2021-10-22] MEDS: Atorvastatin Calcium 10 MG TAB PO SCH (20:37)
[2021-10-22] MEDS: Benzonatate 100 MG CAP PO PRN (21:21)
[2021-10-23] MEDS ORDERED: ALPRAZolam 0.25 MG TAB PO SCH (00:15)
[2021-10-23] MEDS: Acetaminophen 500 MG TAB PO PRN ×3 (00:23→21:09)
[2021-10-23] MEDS: Albuterol 200 PUFF (6.7GM INHALER) INH SCH ×4 (00:30→19:18)
[2021-10-23] MEDS ORDERED: traMADol HCl 50 MG TAB PO SCH (05:15)
[2021-10-23] MEDS: Carvedilol 25 MG TAB PO SCH ×2 (09:09→21:12)
[2021-10-23] MEDS: Digoxin 0.125 MG TAB PO SCH (09:09)
[2021-10-23] MEDS: Amlodipine 10 MG TAB PO SCH (09:09)
[2021-10-23] MEDS: Multivit, Therapeutic 1 TAB PO SCH (09:09)
[2021-10-23] MEDS: Ascorbic Acid 500 mg Chewable Tablet PO SCH (09:09)
[2021-10-23] MEDS: Senokot S 8.6-50 MG TAB PO SCH ×2 (09:09→21:12)
[2021-10-23] MEDS: Amiodarone 200 MG TAB PO SCH ×2 (09:09→17:47)
[2021-10-23] MEDS: Apixaban 5 MG TAB PO SCH ×2 (09:09→21:09)
[2021-10-23] MEDS: Magnesium Oxide 400 MG TAB PO SCH ×2 (09:09→21:09)
[2021-10-23] MEDS: Oxybutynin 5 MG TAB PO SCH (09:10)
[2021-10-23] MEDS: Furosemide 40 MG TAB PO SCH (09:10)
[2021-10-23] MEDS: Famotidine 20 MG TAB PO SCH ×2 (09:10→21:09)
[2021-10-23] MEDS: Losartan 25 MG TAB PO SCH (12:41)
[2021-10-23] MEDS: Melatonin 3 MG TAB PO PRN (21:09)
[2021-10-23] MEDS: Benzonatate 100 MG CAP PO PRN (21:09)
[2021-10-23] MEDS: Zinc Sulfate 220 MG CAP PO SCH (21:09)
[2021-10-23] MEDS: Cholecalciferol 1,000 UNITS (25 MCG) TAB PO SCH (21:09)
[2021-10-23] MEDS: Atorvastatin Calcium 10 MG TAB PO SCH (21:09)
[2021-10-24] MEDS: Albuterol 200 PUFF (6.7GM INHALER) INH SCH ×4 (00:13→11:57)
[2021-10-24] MEDS: Acetaminophen 500 MG TAB PO PRN ×2 (03:44→08:58)
[2021-10-24 08:07] VITALS: BP 135/63; TEMP 97.5
[2021-10-24] MEDS: Digoxin 0.125 MG TAB PO SCH (08:55)
[2021-10-24] MEDS: Multivit, Therapeutic 1 TAB PO SCH (08:55)
[2021-10-24] MEDS: Senokot S 8.6-50 MG TAB PO SCH (08:55)
[2021-10-24] MEDS: Famotidine 20 MG TAB PO SCH (08:55)
[2021-10-24] MEDS: Losartan 25 MG TAB PO SCH (08:56)
[2021-10-24] MEDS: Amiodarone 200 MG TAB PO SCH (08:56)
[2021-10-24] MEDS: Benzonatate 100 MG CAP PO PRN (08:56)
[2021-10-24] MEDS: Ascorbic Acid 500 mg Chewable Tablet PO SCH (08:56)
[2021-10-24] MEDS: Carvedilol 25 MG TAB PO SCH (08:56)
[2021-10-24] MEDS: Apixaban 5 MG TAB PO SCH (08:57)
[2021-10-24] MEDS: Oxybutynin 5 MG TAB PO SCH (08:57)
[2021-10-24] MEDS: Amlodipine 10 MG TAB PO SCH (08:57)
[2021-10-24] MEDS: Furosemide 40 MG TAB PO SCH (08:58)
[2021-10-24] MEDS: Magnesium Oxide 400 MG TAB PO SCH (08:58)
[2021-10-24] MEDS ORDERED: Hydrocortisone 2.5%/Pramoxine 1% CRM 30 GM TUBE PR SCH ×2 (09:30→15:00)
[2021-10-24] MEDS ORDERED: Nystatin Ointment 15 GM TUBE TOP SCH (09:30)
[2021-10-24] MEDS ORDERED: Nystatin Powder 15 GM BOT TOP SCH (21:00)
== END 2021-10-24 13:28 | DRG 871 ==
LOC: ERS 10:20 → ERHOLD 12:02 → 2NO 17:28 → T4-B 10-17 16:16
PROVIDERS: ADMIT Internal Medicine; ATTEND Internal Medicine
DX: A41.50 Gram-negative sepsis, unspecified (principal); J96.01 Acute respiratory failure with hypoxia; I50.33 Acute on chronic diastolic (congestive) heart failure; J15.6 Pneumonia due to other Gram-negative bacteria; U07.1 COVID-19; I48.20 Chronic atrial fibrillation, unspecified; A41.89 Other specified sepsis; Z20.822 Contact with and (suspected) exposure to COVID-19; I73.9 Peripheral vascular disease, unspecified; I25.10 Atherosclerotic heart disease of native coronary artery without angina pectoris; E78.5 Hyperlipidemia, unspecified; E66.9 Obesity, unspecified; F41.1 Generalized anxiety disorder; E87.6 Hypokalemia; M19.90 Unspecified osteoarthritis, unspecified site; I70.1 Atherosclerosis of renal artery; R32 Unspecified urinary incontinence; F32.A Depression, unspecified; I11.0 Hypertensive heart disease with heart failure; Z86.73 Personal history of transient ischemic attack (TIA), and cerebral infarction without residual deficits; Z90.710 Acquired absence of both cervix and uterus; Z88.1 Allergy status to other antibiotic agents; Z88.8 Allergy status to other drugs, medicaments and biological substances; Z79.02 Long term (current) use of antithrombotics/antiplatelets; Z79.01 Long term (current) use of anticoagulants; Z79.899 Other long term (current) drug therapy; Z79.51 Long term (current) use of inhaled steroids; Z68.37 Body mass index [BMI] 37.0-37.9, adult
CPT/HCPCS: 36415; 71045; 71046; 80048; 80053; 81003; 81015; 82550; 83605; 83690; 83735; 83880; 84100; 84145; 84484; 85025; 85379; 87040; 93005; 93306; 93798; 94640; 94644; 94668; 96365; 96366; 96367; 97139; J0456; J0696; J1100; J1940; J3490; J7050; J7611; J7620; U0003; U0005

== ENCOUNTER 2023-03-24 13:34 | Inpatient (IN) | payer MEDICARE ==
[2023-03-24] MEDS ORDERED: Furosemide 40 MG/4 ML VIAL ONE (14:06)
[2023-03-24 14:22] LABS: #Basophils 0.1 thou/uL (0.0-0.2); #Eosinphils 0.3 thou/uL (0.0-0.7); #Monocytes 1.2 thou/uL (0.11-0.59); #Neutrophils 5.1 thou/uL (1.40-6.50); %Basophils 0.6 % (0.0-1.0); %Eosinophils 3.1 % (0.0-10.0); %Lymphocytes 18.8 % (21.0-51.0); %Monocytes 14.3 % (0.0-10.0); Hematocrit 37.8 % (36.0-47.0); Hemoglobin 12.3 g/dL (12.0-16.0); Mean Corpuscular HGB CONC 32.5 g/dL (32.0-36.0); Mean Corpuscular Hemoglobin 32.4 pg (27.0-31.0); Mean Corpuscular Volume 99.5 fl (78.0-98.0); Mean Platelet Volume 10.1 fL (7.4-10.4); Platelet Count 228 10x3/uL (130-400); RBC Distribution Width 14.1 % (11.5-14.5); White Blood Cell (WBC) Count 8.1 10x3/uL (4.8-10.8)
[2023-03-24 14:45] LABS: ALT (SGPT) 47 U/L (8-55); AST (SGOT) 37 U/L (5-34); Albumin 3.8 g/dL (3.4-4.8); Alkaline Phosphatase 90 U/L (40-110); Anion Gap 14 mmol/L (10-20); BUN (Urea Nitrogen) 18 mg/dL (9.8-20.1); Bilirubin, Total 0.6 mg/dL (0.2-1.2); Calc. Creatinine Clearance 0 mL/min (70-130); Calcium 8.7 mg/dL (7.8-10.44); Carbon Dioxide 24 mmol/L (23-31); Chloride 105 mmol/L (98-107); Estimated GFR 73; Globulin 1.9 g/dL (2.4-3.5); Glucose 105 mg/dL (83-110); Potassium 4.2 mmol/L (3.5-5.1); Protein, Total 5.7 g/dL (5.8-8.1); Sodium 139 mmol/L (136-145)
[2023-03-24] MEDS ORDERED: Aspirin Chewable 81 MG TAB ONE (15:16)
[2023-03-24] MEDS ORDERED: Nitroglycerin 0.4 MG TAB 1 EACH ONE (15:16)
[2023-03-24] MEDS ORDERED: Acetaminophen 325 MG TAB PO PRN (15:55)
[2023-03-24] MEDS ORDERED: Nitroglycerin 0.4 MG TAB (25 Tab Bottle) SL PRN (15:57)
[2023-03-24 16:24] LABS: Digoxin Less than 0.15 ng/mL (0.8-2.0)
[2023-03-24] MEDS ORDERED: Amiodarone 200 MG TAB ONE (16:26)
[2023-03-24] MEDS ORDERED: hydrALAZINE 20 MG/ML VIAL SLOW IVP PRN (16:30)
[2023-03-24 16:37] VITALS: BMI 31.6
[2023-03-24] MEDS ORDERED: Amiodarone 200 MG TAB PO SCH (17:00)
[2023-03-24] MEDS ORDERED: Carvedilol 25 MG TAB ONE (20:43)
[2023-03-24] MEDS ORDERED: Atorvastatin Calcium 10 MG TAB ONE (20:43)
[2023-03-24] MEDS: HYDROcodone/Acetaminophen 5/325 mg Tablet PO PRN (20:49)
[2023-03-24] MEDS ORDERED: HYDROcodone/Acetaminophen 5/325 mg Tablet ONE (20:51)
[2023-03-24] MEDS: Atorvastatin Calcium 10 MG TAB PO SCH (21:08)
[2023-03-24] MEDS: Magnesium Oxide 400 MG TAB PO SCH (21:08)
[2023-03-24] MEDS: Carvedilol 25 MG TAB PO SCH (21:08)
[2023-03-24] MEDS: Apixaban 5 MG TAB PO SCH (21:08)
[2023-03-25 01:23] LABS: Bacteria/HPF None Seen HPF (None Seen); Bilirubin Negative (Negative); Blood, Urine Negative (Negative); CAUTI Indications for Culture Dysuria,urgency,freq; Clarity Clear (Clear); Glucose, Urine (Dipstick) Normal (Negative); Ketone, Urine Negative (Negative); Leukocyte Negative Leu/uL (Negative); Nitrite Negative (Negative); Protein, Urine (Dipstick) Negative (Neg-Trace); RBC/HPF 0-3 HPF (0-3); Specific Gravity, Urine 1.002 (1.002-1.036); Squamous Epithelial None Seen HPF (0-3); Urobilinogen Normal mg/dL (Less than 2); WBC/HPF 0-3 HPF (0-3); pH, Urine 7.5 (5.0-9.0)
[2023-03-25 01:24] LABS: Urine Culture Reflex No No
[2023-03-25] MEDS: Melatonin 3 MG TAB PO SCH ×2 (02:56→21:24)
[2023-03-25] MEDS: HYDROcodone/Acetaminophen 5/325 mg Tablet PO PRN (03:21)
[2023-03-25] MEDS ORDERED: HYDROcodone/Acetaminophen 5/325 mg Tablet ONE (03:24)
[2023-03-25] MEDS ORDERED: hydrALAZINE 20 MG/ML VIAL ONE ×2 (04:40→09:59)
[2023-03-25 06:06] LABS: #Basophils 0.1 thou/uL (0.0-0.2); #Eosinphils 0.3 thou/uL (0.0-0.7); #Monocytes 1.3 thou/uL (0.11-0.59); #Neutrophils 5.3 thou/uL (1.40-6.50); %Basophils 0.7 % (0.0-1.0); %Eosinophils 3.2 % (0.0-10.0); %Lymphocytes 22.3 % (21.0-51.0); %Monocytes 14.7 % (0.0-10.0); %Neutrophils 58.8 % (42.0-75.0); Hematocrit 38.2 % (36.0-47.0); Hemoglobin 12.6 g/dL (12.0-16.0); Mean Corpuscular Hemoglobin 31.7 pg (27.0-31.0); Platelet Count 220 10x3/uL (130-400); RBC Distribution Width 13.7 % (11.5-14.5); Red Blood Cell (RBC) Count 3.97 mill/uL (4.20-5.40)
[2023-03-25 06:09] LABS: Mean Corpuscular Volume 96.2 fl (78.0-98.0)
[2023-03-25] MEDS ORDERED: Furosemide 40 MG/4 ML VIAL ONE (06:10)
[2023-03-25] MEDS: Furosemide 40 MG/4 ML VIAL SLOW IVP SCH ×2 (06:22→17:15)
[2023-03-25 06:29] LABS: Anion Gap 13 mmol/L (10-20); BUN (Urea Nitrogen) 14 mg/dL (9.8-20.1); Calc. Creatinine Clearance 80 mL/min (70-130); Calcium 8.6 mg/dL (7.8-10.44); Carbon Dioxide 28 mmol/L (23-31); Chloride 101 mmol/L (98-107); Estimated GFR 86; Glucose 88 mg/dL (83-110); Magnesium 1.4 mg/dL (1.6-2.6); Potassium 3.2 mmol/L (3.5-5.1); Sodium 139 mmol/L (136-145)
[2023-03-25] MEDS ORDERED: Digoxin 0.125 MG TAB PO SCH (09:00)
[2023-03-25] MEDS ORDERED: Carvedilol 25 MG TAB ONE (09:59)
[2023-03-25] MEDS ORDERED: Amlodipine 5 MG TAB ONE (09:59)
[2023-03-25] MEDS ORDERED: Aspirin Chewable 81 MG TAB ONE (09:59)
[2023-03-25] MEDS: Losartan 25 MG TAB PO SCH (10:06)
[2023-03-25] MEDS: Multivit, Therapeutic 1 TAB PO SCH (10:06)
[2023-03-25] MEDS: Carvedilol 25 MG TAB PO SCH ×2 (10:06→21:24)
[2023-03-25] MEDS: Amlodipine 10 MG TAB PO SCH (10:06)
[2023-03-25] MEDS: Aspirin Chewable 81 MG TAB PO SCH (10:06)
[2023-03-25] MEDS: Apixaban 5 MG TAB PO SCH ×2 (10:06→21:24)
[2023-03-25] MEDS ORDERED: Losartan 25 MG TAB ONE (10:08)
[2023-03-25] MEDS ORDERED: Magnesium 2 GM/50 ML(in water) 2 GM in Premix 1 BAG IVPB SCH (11:00)
[2023-03-25] MEDS ORDERED: Morphine 4 MG/ML VIAL ONE (11:46)
[2023-03-25] MEDS: Potassium Chloride 20 MEQ TAB PO SCH ×2 (11:56→19:29)
[2023-03-25] MEDS ORDERED: Multivit, Therapeutic 1 TAB ONE (11:59)
[2023-03-25] MEDS ORDERED: Potassium Chloride 20 MEQ TAB ONE (11:59)
[2023-03-25] MEDS ORDERED: Magnesium 2 GM/50 ML BAG (IN WATER) ONE (11:59)
[2023-03-25] MEDS ORDERED: Morphine 2 MG/ML VIAL SLOW IVP SCH (12:00)
[2023-03-25] MEDS ORDERED: hydrOXYzine 25 MG TAB PO SCH (12:00)
[2023-03-25] MEDS: Ascorbic Acid 500 mg Chewable Tablet PO SCH (12:25)
[2023-03-25] MEDS: Oxybutynin 5 MG TAB PO SCH (12:25)
[2023-03-25] MEDS: Magnesium Oxide 400 MG TAB PO SCH (17:55)
[2023-03-25] MEDS: Atorvastatin Calcium 10 MG TAB PO SCH (21:24)
[2023-03-26] MEDS: Aspirin Chewable 81 MG TAB PO SCH (09:25)
[2023-03-26] MEDS: Oxybutynin 5 MG TAB PO SCH (09:25)
[2023-03-26] MEDS: Ascorbic Acid 500 mg Chewable Tablet PO SCH (09:26)
[2023-03-26] MEDS: Losartan 25 MG TAB PO SCH (09:26)
[2023-03-26] MEDS: Multivit, Therapeutic 1 TAB PO SCH (09:26)
[2023-03-26] MEDS: Carvedilol 25 MG TAB PO SCH ×2 (09:26→21:10)
[2023-03-26] MEDS: Amlodipine 10 MG TAB PO SCH (09:27)
[2023-03-26] MEDS: Torsemide 20 MG TAB PO SCH (09:27)
[2023-03-26] MEDS: Apixaban 5 MG TAB PO SCH ×2 (09:27→21:08)
[2023-03-26] MEDS ORDERED: Furosemide 40 MG/4 ML VIAL SLOW IVP SCH (14:15)
[2023-03-26] MEDS: Melatonin 3 MG TAB PO SCH (21:09)
[2023-03-26] MEDS: Atorvastatin Calcium 10 MG TAB PO SCH (21:10)
[2023-03-27] MEDS: HYDROcodone/Acetaminophen 5/325 mg Tablet PO PRN ×3 (01:41→22:47)
[2023-03-27 04:39] LABS: Anion Gap 15 mmol/L (10-20); BUN (Urea Nitrogen) 15 mg/dL (9.8-20.1); Calc. Creatinine Clearance 66 mL/min (70-130); Calcium 8.7 mg/dL (7.8-10.44); Carbon Dioxide 28 mmol/L (23-31); Chloride 94 mmol/L (98-107); Estimated GFR 70; Glucose 107 mg/dL (83-110); Magnesium 1.5 mg/dL (1.6-2.6); Potassium 2.9 mmol/L (3.5-5.1); Sodium 134 mmol/L (136-145)
[2023-03-27] MEDS: Furosemide 40 MG/4 ML VIAL SLOW IVP SCH ×2 (05:52→15:50)
[2023-03-27] MEDS: Multivit, Therapeutic 1 TAB PO SCH (08:56)
[2023-03-27] MEDS: Apixaban 5 MG TAB PO SCH ×2 (08:56→21:01)
[2023-03-27] MEDS: Amlodipine 10 MG TAB PO SCH (08:56)
[2023-03-27] MEDS: Ascorbic Acid 500 mg Chewable Tablet PO SCH (08:56)
[2023-03-27] MEDS: Torsemide 20 MG TAB PO SCH (08:56)
[2023-03-27] MEDS: Oxybutynin 5 MG TAB PO SCH (08:56)
[2023-03-27] MEDS: Aspirin Chewable 81 MG TAB PO SCH (08:56)
[2023-03-27] MEDS: Losartan 25 MG TAB PO SCH (08:56)
[2023-03-27] MEDS: Carvedilol 25 MG TAB PO SCH ×2 (08:56→21:01)
[2023-03-27] MEDS ORDERED: Magnesium 2 GM/50 ML(in water) 2 GM in Premix 1 BAG IVPB SCH (10:00)
[2023-03-27] MEDS ORDERED: Potassium Chloride 20 MEQ TAB PO SCH (10:00)
[2023-03-27] MEDS: Potassium Chloride 20 MEQ TAB PO SCH (15:50)
[2023-03-27] MEDS: Atorvastatin Calcium 10 MG TAB PO SCH (21:01)
[2023-03-27] MEDS: Melatonin 3 MG TAB PO SCH (21:01)
[2023-03-28 04:52] LABS: Anion Gap 16 mmol/L (10-20); BUN (Urea Nitrogen) 27 mg/dL (9.8-20.1); Calc. Creatinine Clearance 61 mL/min (70-130); Calcium 8.7 mg/dL (7.8-10.44); Carbon Dioxide 27 mmol/L (23-31); Chloride 96 mmol/L (98-107); Estimated GFR 68; Glucose 107 mg/dL (83-110); Magnesium 1.9 mg/dL (1.6-2.6); Sodium 136 mmol/L (136-145)
[2023-03-28] MEDS: Furosemide 40 MG/4 ML VIAL SLOW IVP SCH (05:32)
[2023-03-28 07:55] VITALS: TEMP 98
[2023-03-28] MEDS: Potassium Chloride 20 MEQ TAB PO SCH (09:20)
[2023-03-28] MEDS: Aspirin Chewable 81 MG TAB PO SCH (09:21)
[2023-03-28] MEDS: Amlodipine 10 MG TAB PO SCH (09:21)
[2023-03-28] MEDS: Apixaban 5 MG TAB PO SCH (09:21)
[2023-03-28] MEDS: Carvedilol 25 MG TAB PO SCH (09:21)
[2023-03-28] MEDS: Ascorbic Acid 500 mg Chewable Tablet PO SCH (09:21)
[2023-03-28] MEDS: Torsemide 20 MG TAB PO SCH (09:22)
[2023-03-28] MEDS: Losartan 25 MG TAB PO SCH (09:22)
[2023-03-28] MEDS: Multivit, Therapeutic 1 TAB PO SCH (09:22)
[2023-03-28] MEDS: Oxybutynin 5 MG TAB PO SCH (09:23)
[2023-03-28] MEDS: HYDROcodone/Acetaminophen 5/325 mg Tablet PO PRN ×2 (09:23→14:30)
[2023-03-28 12:16] VITALS: BP 130/63
== END 2023-03-28 15:17 | disposition home health service (06) | DRG 291 ==
LOC: SUATTDRO 13:34 → ERS 13:34 → ERHOLD 15:57 → 2SW 03-25 13:20 → OBSVTOIN 03-26 13:55
PROVIDERS: ADMIT Internal Medicine; ATTEND Family Medicine
DX: I11.0 Hypertensive heart disease with heart failure (principal); I50.33 Acute on chronic diastolic (congestive) heart failure; I48.20 Chronic atrial fibrillation, unspecified; M19.90 Unspecified osteoarthritis, unspecified site; E78.5 Hyperlipidemia, unspecified; R33.9 Retention of urine, unspecified; K21.9 Gastro-esophageal reflux disease without esophagitis; E87.6 Hypokalemia; E83.42 Hypomagnesemia; I73.9 Peripheral vascular disease, unspecified; I25.10 Atherosclerotic heart disease of native coronary artery without angina pectoris; E66.9 Obesity, unspecified; F41.1 Generalized anxiety disorder; Z88.8 Allergy status to other drugs, medicaments and biological substances; Z79.51 Long term (current) use of inhaled steroids; Z88.1 Allergy status to other antibiotic agents; Z79.01 Long term (current) use of anticoagulants; Z79.899 Other long term (current) drug therapy; Z90.710 Acquired absence of both cervix and uterus; Z86.73 Personal history of transient ischemic attack (TIA), and cerebral infarction without residual deficits; Z68.31 Body mass index [BMI] 31.0-31.9, adult
CPT/HCPCS: 36415; 71045; 80048; 80053; 80162; 81001; 83735; 83880; 84484; 85025; 85379; 93005; 93306; 96374; 96375; 96376; 97139; G0378; J0360; J1940; J2270; J2272; J3475